=== PATIENT | male | born 1975 | race Caucasian/White ===

== ENCOUNTER 2018-02-20 00:19 | Emergency (ER) | payer BC ==
[~2018-02-20] VITALS: Ht 188 cm; Wt 84.0 kg
[2018-02-20] MEDS ORDERED: ESCI20TA PO (02:01)
[2018-02-20] MEDS ORDERED: TETanus/Pertussis (Acell)/Diphther VAC/PF (Tdap-Adult) 0.5ml syringe IM ONE (02:40)
[2018-02-20] MEDS ORDERED: ibuprofen 200mg tablet PO ONE (02:40)
[2018-02-20] MEDS ORDERED: IBUP-1985 PO (02:42)
[2018-02-20 03:11] VITALS: BP 134/67
== END 2018-02-20 03:15 | disposition home or self-care (01) ==
LOC: ER 00:20
DX: S09.90XA Unspecified injury of head, initial encounter (principal); H11.31 Conjunctival hemorrhage, right eye; Y09 Assault by unspecified means; Y93.89 Activity, other specified; Y92.89 Other specified places as the place of occurrence of the external cause; Y99.8 Other external cause status
CPT/HCPCS: 90471; 90715; 99283